=== PATIENT | male | born 1980 | race Caucasian/White ===

== ENCOUNTER 2022-01-16 07:16 | Day surgery (SDC) | payer OTHER ==
[2022-01-15 08:30] VITALS: BMI 20.2
--- NOTE | 2022-01-16 06:30 | P.GSHP ---
History of Present Illness H&P Date: 01/16/22 CHIEF COMPLAINT: Inguinal hernia, left HISTORY OF PRESENT ILLNESS: The patient is a 42-year-old male who presents with a history of swelling and pain along the left groin. He has noted increased swelling including pain of the area. Now he presents for repair of his inguinal hernia. PAST MEDICAL HISTORY: Please see list. PAST SURGICAL HISTORY: Please see list. MEDICATIONS: Please see list. ALLERGIES: Please see list. SOCIAL HISTORY: No illicit drug use FAMILY HISTORY: No reports of Crohn disease or ulcerative colitis. REVIEW OF ORGAN SYSTEMS: CONSTITUTIONAL: No reports of fevers or chills. No reports of weight loss despite prior attempts. GI: Denies any blood in stools or constipation. PHYSICAL EXAM: VITAL SIGNS: Stable GENERAL: Well-developed pleasant in no acute distress. HEENT: No scleral icterus. Extraocular movements grossly intact. Moist buccal mucosa. NECK: Supple without lymphadenopathy. CHEST: Unlabored respirations. Equal bilateral excursions. CARDIOVASCULAR: Regular rate and rhythm. Distal 2+ pulses. ABDOMEN: Soft, nondistended. No peritoneal signs. Moderate tenderness left lower quadrant MUSCULOSKELETAL: No clubbing, cyanosis, or edema. ASSESSMENT: 1. Inguinal hernia, left initial and symptomatic. PLAN: 1. Recommend proceeding robotic inguinal repair with mesh with possible bilateral approach. 2. Benefits and risks of surgical intervention was discussed including possibility of open technique. 3. DVT prophylaxis. 4. Antibiotic prophylaxis. Past Medical History Additional Past Medical History / Comment(s): HERNIA History of Any Multi-Drug Resistant Organisms: None Reported Past Surgical History: Appendectomy, Hernia Repair Past Anesthesia/Blood Transfusion Reactions: No Reported Reaction Smoking Status: Current every day smoker - Past Family History Mother Family Medical History: No Reported History Medications and Allergies Home Medications Medication Instructions Recorded Confirmed Type No Known Home Medications 01/15/22 01/15/22 History Allergies Allergy/AdvReac Type Severity Reaction Status Date / Time No Known Allergies Allergy Verified 01/15/22 08:26
[~2022-01-16 07:16] MED LIST: ACETAMINOPHEN TAB 500 MG TAB PO PRN; DEXAMETHASONE SOD PHOSPHATE 4 MG/ML 1 ML VIAL IV ONE; GABAPENTIN 300 MG CAP PO PRN; HEPARIN SODIUM,PORCINE/PF 5,000 UNIT/0.5 ML SYRINGE SQ PRN; HYDROmorphone 0.5 MG/0.5 ML SYRINGE IVP PRN; LACTATED RINGERS 1,000 ML IV SCH; MELOXICAM 7.5 MG TAB PO PRN; MIDAZOLAM 2 MG/2 ML VIAL IV PRN; ONDANSETRON 4 MG/2 ML VIAL IVP ONE; SCOPOLAMINE 1 MG/72 HR PATCH TRANSDERM ONE; TAMSULOSIN 0.4 MG CAP.ER.24H PO PRN
[2022-01-16 07:34] VITALS: RESP 16
[2022-01-16] MEDS ORDERED: HEPARIN SODIUM,PORCINE/PF 5,000 UNIT/0.5 ML SYRINGE SQ ONE (07:52)
[2022-01-16] MEDS ORDERED: POTASSIUM CHLORIDE 10 MEQ/100 ML BAG ONE (07:59)
[2022-01-16] MEDS ORDERED: PROPOFOL 10 MG/ML 20 ML VIAL IV ONE (07:59)
[2022-01-16] MEDS ORDERED: GLYCOPYRROLATE 0.2 MG/ML 2 ML VIAL ONE (07:59)
[2022-01-16] MEDS ORDERED: KETAMINE 10 MG/ML 20 ML VIAL ONE (07:59)
[2022-01-16] MEDS ORDERED: ROCURONIUM 10 MG/ML (5 ML VIAL) IV ONE (07:59)
[2022-01-16] MEDS ORDERED: SUCCINYLCHOLINE CHLORIDE 100 MG/5 ML SYR IV ONE (07:59)
[2022-01-16] MEDS ORDERED: MIDAZOLAM 2 MG/2 ML VIAL ONE (07:59)
[2022-01-16] MEDS ORDERED: HYDROmorphone (PF) 1 MG/ML ONE (07:59)
[2022-01-16] MEDS ORDERED: NEOSTIGMINE 1 MG/ML 10 ML VIAL ONE (07:59)
[2022-01-16] MEDS ORDERED: fentaNYL (PF) 50 MCG/ML 2 ML AMP ONE (07:59)
[2022-01-16] MEDS ORDERED: LIDOCAINE 1% INJ 10MG/ML (20 ML MDV) ONE (07:59)
[2022-01-16] MEDS ORDERED: HEPARIN SODIUM,PORCINE 5,000 UNIT/ML 1 ML VIAL ONE (07:59)
[2022-01-16 08:00] LABS: ALT 18 U/L (4-49); AST 27 U/L (17-59); African American GFR (CKD) >90 (>60 ml/min/1.73 sqM); Albumin 4.4 g/dL (3.5-5.0); Alkaline Phosphatase 75 U/L (38-126); Anion Gap 10 mmol/L; Blood Urea Nitrogen 19 mg/dL (9-20); Calcium 9.1 mg/dL (8.4-10.2); Carbon Dioxide 29 mmol/L (22-30); Chloride 102 mmol/L (98-107); Glucose 110 mg/dL (74-99); Non-African American GFR(CKD) >90 (>60 ml/min/1.73 sqM); Sodium 141 mmol/L (137-145); Total Bilirubin 0.6 mg/dL (0.2-1.3); Total Protein 7.3 g/dL (6.3-8.2)
[2022-01-16 08:03] LABS: Basophils # (A) 0.1 k/uL (0-0.2); Basophils % (A) 1 %; Eosinophils # (A) 0.1 k/uL (0-0.7); Eosinophils % (A) 1 %; HCT 47.9 % (39.0-53.0); HGB 16.3 gm/dL (13.0-17.5); Lymphocytes % (A) 33 %; MCH 31.6 pg (25.0-35.0); MCHC 34.1 g/dL (31.0-37.0); MCV 92.8 fL (80.0-100.0); Monocytes # (A) 0.7 k/uL (0-1.0); Monocytes % (A) 6 %; Neutrophils # (A) 7.2 k/uL (1.3-7.7); Neutrophils % (A) 59 %; Platelet Count 362 k/uL (150-450); RBC 5.16 m/uL (4.30-5.90); WBC 12.3 k/uL (3.8-10.6)
[2022-01-16] MEDS ORDERED: BUPIVACAINE (PF) 0.25% 30 ML VIAL SQ ONE (08:43)
--- NOTE | 2022-01-16 09:54 | P.OP ---
Date of Procedure: 01/16/22 Description of Procedure: SURGEON: HILARY ROBERTO MD PREOPERATIVE DIAGNOSES: 1. Initial left inguinal hernia. 2. Prior right inguinal hernia repair 3. Tobacco abuse disorder 4. Hypokalemia 5. Medical noncompliance 6. Leukocytosis. POSTOPERATIVE DIAGNOSES: 1. Initial left inguinal hernia without incarceration, 3 cm 2. Initial recurrent inguinal hernia, direct, 1 cm 3. Chronic obstructive pulmonary disease 4. Tobacco abuse disorder 5. Leukocytosis 6. Medical noncompliance OPERATION: 1. Robotic-assisted da Shreya Xi laparoscopic repair of recurrent right direct inguinal hernia without mesh 2. Robotic-assisted da Shreya Xi laparoscopic repair of initial incarcerated left indirect inguinal hernia with mesh, 11.[address] ANESTHESIA: General with local anesthetic ESTIMATED BLOOD LOSS: 5 mL. SPECIMENS: 1. Left inguinal hernia sac COMPLICATIONS: None. FINDINGS: 1. Incarcerated recurrent right inguinal hernia, 1 cm, direct 2. Left inguinal hernia, 3 cm, indirect INDICATIONS: The patient is a 42-year-old male with prior right inguinal hernia repair as a child. Prior to surgery, patient was told and advanced to completely avoid tobacco use due to high risk for complications. Laparoscopic versus open and robotic approaches were discussed. Benefits and risks including bleeding, infection, injury to the vas deferens as well as sterility and chronic groin pain were reviewed. Placement of mesh was also described. Informed consent was obtained. DESCRIPTION: In the preoperative area, the patient was marked with indelible marker along the inguinal hernia. The patient was brought to the operating room and initially laid in supine position. The abdomen had been prepped and draped in standard sterile fashion. Ioban draping was also placed. (After the patient was brought into the operating room and intubated, staff disclosed patient was still smoking with hypokalemia and elevated white count. ) Prior to incision, a timeout protocol was confirmed with surgical team regarding patient's name including procedures to be performed and location along the right groin. Initial positioning for the robotic assisted ports were selected whereby 20 cm superior to the target anatomy, 0 degree 5 mm laparoscopic trocar entry was performed at the left upper quadrant. The abdomen was insufflated to 15 mmHg which he had tolerated well. Diagnostic laparoscopy demonstrated no injury to bowel, viscera or mesentery. A defect along the left groin was found including along the right side. Next, along the epigastrium, 8 mm robot trocar was placed. An 8-mm robotic trocar was placed under direct visualization at the right upper quadrant. An 8 mm port was placed at the left upper quadrant. All trocars were positioned between 10-cm apart from each other. A separate 12-mm trochar was placed on the epigastrium for placement of sutures and mesh. The [employer] XI robot was primed, draped, prepared for docking along upper abdomen of the patient. The patient was positioned 21 steep Trendelenburg position I then went to the [employer] Xi console. The certified ophthalmic surgical assistant was at bedside for exchange of the robot arms and equipment. The left indirect inguinal hernia sac was evaginated whereby the peritoneum was scored using Endo scissors with cautery. Once completely reduced into the abdominal cavity, the peritoneal sac of the hernia was stripped. Sac extended into the scrotum and divided as distal as possible. The sac was resected and then passed off for further pathological analysis. The size of the hernia defect was 3 cm with intraoperative films obtained. Using nonabsorbable 2-0 VLOC, the peritoneal defect of the left inguinal hernia was closed using pursestring suture. The defect was found to be completely closed with complete reduction of the left direct inguinal hernia were confirmed. As an onlay, an 11.[address] mesh by [employer] was initially cut in half and entered into the abdominal cavity. The mesh was tacked to the pelvis using nonabsorbable2-0 VLOC 9-inch length sutures. Next, careful attention along the right groin demonstrated 1-cm right inguinal hernia, direct. Using nonabsorbable 2-0 VLOC, the peritoneal defect of the right inguinal hernia site was closed using pursestring suture. The defect was found to be completely closed with complete reduction of the right direct inguinal hernia was confirmed. The robot was undocked from the patient's bedside. I then rescrubbed into the case. The 12 mm trocar was removed oversewn using RobertAlvina and 0 Vicryl. Insufflation was released from the abdominal cavity and all instruments were removed from the abdominal cavity. The rest of incisions were reapproximated using 4-0 Monocryl in a running subcuticular fashion. Local anesthetic was placed along the incisions. Incisions were cleansed using dilute hydrogen peroxide. Liquid glue was applied to the skin. At the end of the procedure, the needle, sponge and instrument counts had been verified correct by the rn medical surgical. The patient had tolerated the procedure well and was taken to the postanesthesia care unit in stable condition. Plan - Discharge Summary Discharge Rx Participant: No New Discharge Prescriptions: New Simethicone [Gas-X] 125 mg PO AC-TID PRN #20 capsule PRN Reason: Pain Acetaminophen Tab [Tylenol Tab] 1,000 mg PO Q6HR PRN #30 tablet PRN Reason: Pain Amoxicillin/Potassium Clav [Augmentin 875-125 Tablet] 1 tab PO BID #10 tab Ibuprofen [Motrin] 600 mg PO Q8HR PRN #30 tab PRN Reason: Pain Discharge Medication List Acetaminophen Tab [Tylenol Tab] 1,000 mg PO Q6HR PRN #30 tablet 01/16/22 [Rx] Amoxicillin/Potassium Clav [Augmentin 875-125 Tablet] 1 tab PO BID #10 tab 01/16/22 [Rx] Ibuprofen [Motrin] 600 mg PO Q8HR PRN #30 tab 01/16/22 [Rx] Simethicone [Gas-X] 125 mg PO AC-TID PRN #20 capsule 01/16/22 [Rx] Follow up Appointment(s)/Referral(s): Hilary Roberto MD [STAFF PHYSICIAN] - 01/27/22 Patient Instructions/Handouts: *Surgery [facility] - (Anesthesia) Discharge Instructions Outpatient Surgery, How to Stop Smoking (DC), Laparoscopic Herniorrhaphy (IP), Inguinal Hernia Repair (DC), *Surgery [facility] - Managing Your Pain After Surgery Without Opioids Activity/Diet/Wound Care/Special Instructions: NO SMOKING DURING RECOVERY TO PREVENT COMPLICATIONS Using antibacterial soap. No lifting over 4 pounds 4 weeks, February 15February shower. No bathtub soaks for 2 weeks, January 30 Use ice along incisions for today to prevent swelling. Discharge Disposition: HOME SELF-CARE
[2022-01-16 09:58] VITALS: TEMP 97.2
--- NOTE | 2022-01-16 10:23 | XR ---
EXAMINATION TYPE: XR chest 1V portable DATE OF EXAM: 01/16/2022 COMPARISON: NONE HISTORY: Shortness of breath TECHNIQUE: Single portable frontal upright view of the chest is obtained. FINDINGS: There is no focal air space opacity, pleural effusion, or pneumothorax seen. The cardiac silhouette size is within normal limits. Overlying EKG leads. The osseous structures are intact. IMPRESSION: No acute process.
[2022-01-16 10:54] LABS: Basophils % (A) 0 %; Eosinophils % (A) 0 %; HGB 15.2 gm/dL (13.0-17.5); Lymphocytes # (A) 1.4 k/uL (1.0-4.8); Lymphocytes % (A) 8 %; MCH 30.9 pg (25.0-35.0); MCHC 32.4 g/dL (31.0-37.0); MCV 95.4 fL (80.0-100.0); Mean Platelet Volume 7.2; Monocytes # (A) 0.4 k/uL (0-1.0); Monocytes % (A) 2 %; Neutrophils # (A) 15.8 k/uL (1.3-7.7); Neutrophils % (A) 89 %; Platelet Count 292 k/uL (150-450); RBC 4.92 m/uL (4.30-5.90); RDW 12.6 % (11.5-15.5); WBC 17.7 k/uL (3.8-10.6)
[2022-01-16 11:07] LABS: African American GFR (CKD) >90 (>60 ml/min/1.73 sqM); Anion Gap 8 mmol/L; Blood Urea Nitrogen 19 mg/dL (9-20); Calcium 8.8 mg/dL (8.4-10.2); Carbon Dioxide 29 mmol/L (22-30); Chloride 105 mmol/L (98-107); Glucose 121 mg/dL (74-99); Non-African American GFR(CKD) >90 (>60 ml/min/1.73 sqM); Potassium 3.8 mmol/L (3.5-5.1); Sodium 142 mmol/L (137-145)
[2022-01-16 11:31] VITALS: BP 115/71; PULSE 94
== END 2022-01-16 11:49 | disposition home or self-care (01) ==
LOC: OR 07:16
PROVIDERS: ATTEND Surgery Plastic and Reconstructive Surgery
DX: K40.31 Unilateral inguinal hernia, with obstruction, without gangrene, recurrent (principal); K40.91 Unilateral inguinal hernia, without obstruction or gangrene, recurrent; F17.210 Nicotine dependence, cigarettes, uncomplicated; J44.9 Chronic obstructive pulmonary disease, unspecified; J45.990 Exercise induced bronchospasm; D72.829 Elevated white blood cell count, unspecified; E87.6 Hypokalemia; Z91.19 Patient's noncompliance with other medical treatment and regimen; Z90.49 Acquired absence of other specified parts of digestive tract; Z98.890 Other specified postprocedural states
CPT/HCPCS: 49650; 49651; S2900; 71045; 80048; 80053; 85025; 88302